=== PATIENT | female | born 1935 | race Caucasian/White ===

== ENCOUNTER → 2016-06-17 | Outpatient (CLI) | payer OTHER, MEDICARE ==
[~2016-06-17] MED LIST: ADVAIR 100/501 DISK IH; ADVAIR 250/501 DISK IH; ALPRAZOLAM0.25 MG PO; ARIMIDEX1 MG PO; Advair 250/50 Diskus IH; BACTERICIN30 GM TP; CALCIUM 500 +1 EACH PO; CARTIA XT120 MG PO; CENTRUM SILVER1 EACH PO; CLARITIN10 M3 PO; COUMADIN6 MG PO; COUMADIN7.5 MG PO; DIGOXIN250 MCG PO; FINACEA 15% GEL50 GM TP; FLONASE16 G1 BOTH NARES; HYDROCODON-ACE1 EAC7 PO; Levaquin PO; NASACORT10.8 ML BOTH NARES; SERTRALINE HCL100 MG PO; SYNTHROID125 MCG PO; TEMOVATE 0.05%30 GM TP; TRAMADOL HCL50 MG PO; TYLENOL REGULA325 MG PO; TYLENOL325 M1 PO; VENTOLIN HFA18 GM IH; WARFARIN SODIUM2 MG PO; WARFARIN SODIUM5 MG PO; WARFARIN SODIUM6 MG PO; WELLBUTRIN SR150 MG PO; XANAX1 MG PO; ZOLOFT50 MG PO; ZOO CHEWS1 EACH PO; ZYLET EYE DROPS10 ML BOTH EYES; ZYRTEC10 M2 PO; Zoloft PO; predniSONE PO
== END | disposition home or self-care (01) ==
LOC: NUC 11:00
DX: C50.919 Malignant neoplasm of unspecified site of unspecified female breast (principal); M51.36 Other intervertebral disc degeneration, lumbar region; M17.11 Unilateral primary osteoarthritis, right knee; M17.12 Unilateral primary osteoarthritis, left knee; M19.011 Primary osteoarthritis, right shoulder; M19.012 Primary osteoarthritis, left shoulder; M19.031 Primary osteoarthritis, right wrist; M19.032 Primary osteoarthritis, left wrist; M19.071 Primary osteoarthritis, right ankle and foot; M19.072 Primary osteoarthritis, left ankle and foot
CPT/HCPCS: 78306; A9503

== ENCOUNTER 2016-10-23 18:58 | Inpatient (IN) | payer OTHER, MEDICARE ==
[~2016-10-23] VITALS: Ht 162.6 cm; Wt 75.4 kg
[2016-10-23 19:47] LABS: HEMATOCRIT 40.6 % (36.0-46.0); MCH 31.2 PG (29.0-34.0); MCV 94.6 FL (83-99); MEAN PLAT.VOLUME 10.4 uM^3 (9.5-12.4); PLATELET COUNT 155 K/uL (156-360); RBC DIS.WIDTH-CV 13.8 % (11.8-14.6); RBC DIS.WIDTH-SD 48.7 % (39-53); RED BLOOD COUNT 4.29 M/uL (3.80-5.20); WHITE BLOOD COUNT 4.4 K/uL (4.1-10.2)
[2016-10-23 19:50] LABS: INTER. NORMALIZED RATIO 2.2; PROTHROMBIN TIME 24.9 SEC (10.2-12.9)
[2016-10-23 19:56] LABS: CHLORIDE 106 mEq/L (99-109); SODIUM 140 mEq/L (136-147)
[2016-10-23 19:58] LABS: GLUCOSE 114 mg/dL (70-99)
[2016-10-23 19:59] LABS: ANION GAP 6 MEQ/L (2-14)
[2016-10-23 20:01] LABS: GFR ESTIMATE (CALCULATED) > 59 mL/min/
[2016-10-23 20:02] LABS: UREA NITROGEN (BUN) 14 mg/dL (9-23)
[2016-10-23 20:07] LABS: TROP-I INTERPRETATION NEGATIVE; TROPONIN-I < 0.01 ng/mL (0.0-0.30)
[2016-10-23 21:47] LABS: ADD MIUA? NO; BILIRUBIN NEGATIVE; BLOOD NEGATIVE; COLOR COLORLESS ((YELLOW)); GLUCOSE (STRIP) NEGATIVE; KETONES NEGATIVE; LEUKOCYTES NEGATIVE; NITRITE NEGATIVE; PROTEIN (STRIP) NEGATIVE; SPECIFIC GRAVITY 1.004 (1.000-1.030); UCUL ADDED? NO; UROBILINOGEN 0.2 MG/DL (0.2-1.0)
[2016-10-24] VITALS (16 sets, daily range): BP systolic 108–145; BP diastolic 56–70
[2016-10-24 05:53] LABS: INTER. NORMALIZED RATIO 2.2; PROTHROMBIN TIME 25.4 SEC (10.2-12.9)
[2016-10-24 05:57] LABS: TROP-I INTERPRETATION NEGATIVE; TROPONIN-I 0.01 ng/mL (0.0-0.30)
[2016-10-24 07:53] LABS: DIGOXIN < 0.3 ng/mL (0.8-2.0)
[2016-10-24 12:56] LABS: INTER. NORMALIZED RATIO 1.8; PROTHROMBIN TIME 20.5 SEC (10.2-12.9)
[2016-10-24] MEDS ORDERED: CARTIA XT180 MG PO (13:29)
[2016-10-25] VITALS (7 sets, daily range): BP systolic 100–151; BP diastolic 51–70
[2016-10-25 06:14] LABS: HEMATOCRIT 38.5 % (36.0-46.0); MCH 31.5 PG (29.0-34.0); MCHC 33.5 G/DL (30.0-36.0); MCV 93.9 FL (83-99); MEAN PLAT.VOLUME 10.5 uM^3 (9.5-12.4); PLATELET COUNT 153 K/uL (156-360); RBC DIS.WIDTH-CV 13.6 % (11.8-14.6); RBC DIS.WIDTH-SD 47.5 % (39-53)
[2016-10-25 06:36] LABS: INTER. NORMALIZED RATIO 1.1; PROTHROMBIN TIME 12.4 SEC (10.2-12.9)
[2016-10-25 06:39] LABS: PTT 29.8 SEC (25-37)
[2016-10-25 06:42] LABS: ANION GAP 9 MEQ/L (2-14); CHLORIDE 108 MEQ/L (99-109); GFR ESTIMATE (CALCULATED) > 59 mL/min/; GLUCOSE 98 mg/dL (70-99); POTASSIUM 3.6 MEQ/L (3.7-5.4); SAMPLE HEMOLYSIS CHECK 0; SAMPLE ICTERIC CHECK 0; SAMPLE LIPEMIA CHECK 0; SODIUM 142 MEQ/L (136-147); UREA NITROGEN (BUN) 8 mg/dL (9-23)
[2016-10-25 06:44] LABS: TROP-I INTERPRETATION NEGATIVE; TROPONIN-I < 0.01 ng/mL (0.0-0.30)
[2016-10-26 00:29] VITALS: BP 145/66
[2016-10-26 04:00] VITALS: BP 132/60
[2016-10-26 06:00] LABS: INTER. NORMALIZED RATIO 1.1; PROTHROMBIN TIME 11.7 SEC (10.2-12.9)
[2016-10-26 07:20] LABS: ANION GAP 9 MEQ/L (2-14); CHLORIDE 108 MEQ/L (99-109); GFR ESTIMATE (CALCULATED) > 59 mL/min/; GLUCOSE 88 mg/dL (70-99); POTASSIUM 4.2 MEQ/L (3.7-5.4); SAMPLE HEMOLYSIS CHECK 0; SAMPLE ICTERIC CHECK 0; SAMPLE LIPEMIA CHECK 0; SODIUM 143 MEQ/L (136-147); UREA NITROGEN (BUN) 10 mg/dL (9-23)
[2016-10-26 08:30] VITALS: BP 139/58
[2016-10-26] MEDS ORDERED: ADVAIR HFA120 INHALA IH (08:49)
[2016-10-26] MEDS ORDERED: DOCUSATE SODIU100 MG PO (08:49)
[2016-10-26] MEDS ORDERED: DILTIAZEM 24HR120 MG PO (08:49)
[2016-10-26 15:32] VITALS: BP 119/58
[2016-10-26 19:26] VITALS: BP 117/53
[2016-10-26 23:40] VITALS: BP 107/53
[2016-10-27 03:59] VITALS: BP 106/57
[2016-10-27 07:30] VITALS: BP 112/60
[2016-10-27] MEDS ORDERED: HYDROCODON-ACE1 EAC7 PO ×2 (14:22→15:08)
[2016-10-27] MEDS ORDERED: GABAPENTIN100 MG PO (14:22)
== END 2016-10-27 17:20 | DRG 83 ==
LOC: EME → EDBD 18:58 → EME 18:58 → EDOF 10-24 00:43 → ENRESERV 10-24 00:45 → 5WEST 10-24 03:49 → 4EAST 10-24 07:30 → 5WEST 10-24 07:30 → ENRESERV 10-24 07:32 → 4EAST 10-24 09:12 → ENPENDDIS 10-26 → 4EAST 10-26 10:30
PROVIDERS: Emergency Medicine; Hospitalist
DX: S06.309A Unspecified focal traumatic brain injury with loss of consciousness of unspecified duration, initial encounter (principal); I47.1 Supraventricular tachycardia; G93.89 Other specified disorders of brain; F32.0 Major depressive disorder, single episode, mild; I48.0 Paroxysmal atrial fibrillation; J44.9 Chronic obstructive pulmonary disease, unspecified; S52.579A Other intraarticular fracture of lower end of unspecified radius, initial encounter for closed fracture; R55 Syncope and collapse; I34.1 Nonrheumatic mitral (valve) prolapse; E03.9 Hypothyroidism, unspecified; M17.9 Osteoarthritis of knee, unspecified; I10 Essential (primary) hypertension; E78.5 Hyperlipidemia, unspecified; I44.0 Atrioventricular block, first degree; G89.29 Other chronic pain; R51 Headache; F41.8 Other specified anxiety disorders; M25.569 Pain in unspecified knee; W19.XXXA Unspecified fall, initial encounter; Z92.3 Personal history of irradiation; Z85.3 Personal history of malignant neoplasm of breast; Z79.01 Long term (current) use of anticoagulants; Z86.72 Personal history of thrombophlebitis; Z90.710 Acquired absence of both cervix and uterus; Z87.891 Personal history of nicotine dependence; Z79.899 Other long term (current) drug therapy; Z79.811 Long term (current) use of aromatase inhibitors; Z90.49 Acquired absence of other specified parts of digestive tract
CPT/HCPCS: 70450; 71020; 73090; 73100; 73110; 80048; 80162; 81003; 82306; 82607; 84443; 84484; 85027; 85610; 85730; 86900; 86901; 93005; 94640; 94640 76; 99202; 99281; 99285; J2270; J3430; J7030; J7050; P9017